=== PATIENT | male | born 1980 | race Two or more races ===

== ENCOUNTER 2024-02-22 22:43 | Emergency (ER) | payer OTHER ==
[~2024-02-22] VITALS: Ht 175.3 cm; Wt 74.8 kg
[2024-02-22 23:38] VITALS: BP 135/84; TEMP 98.6; O2SAT 99
[2024-02-22] MEDS ORDERED: LIDOCAINE MPF 1%-EPI 1:200,000 30 ML VIAL IJ ONE (23:49)
[2024-02-22] MEDS ORDERED: TDAP [DIPH/PERTUSSIS/TET] 0.5 ML VIAL IM ONE (23:50)
[2024-02-22] MEDS: TDAP [DIPH/PERTUSSIS/TET] 0.5 ML VIAL IM ONE (23:52)
[2024-02-23] MEDS ORDERED: CEPH500T PO (00:30)
[2024-02-23] MEDS: LIDOCAINE HCL/PF 1% 30 ML VIAL MC ONE (00:33)
== END 2024-02-23 00:38 | disposition home or self-care (01) ==
LOC: ER 22:50
DX: S50.851A Superficial foreign body of right forearm, initial encounter (principal); X58.XXXA Exposure to other specified factors, initial encounter; Y93.89 Activity, other specified; Y92.89 Other specified places as the place of occurrence of the external cause; Y99.8 Other external cause status
CPT/HCPCS: 99284; 90471; 90715; J3490 ×2